=== PATIENT | male | born 1955 | race Caucasian/White ===

== ENCOUNTER → 2019-06-08 | Outpatient (CLI) | payer SELFPAY ==
[~2019-06-08] MED LIST: AMLO10 PO; CHLO25B PO; LISI20 PO
[2019-06-08 13:13] LABS: Source, Urine Clean Catch
[2019-06-08 18:10] LABS: Bilirubin, Urine Neg (Neg); Blood, Urine 1+ (Neg); Glucose Qualitative, Urine Neg (Neg); Ketones, Urine Neg (Neg); Leukocyte Esterase, Urine Neg (Neg); Nitrite, Urine Neg (Neg); Protein, Urine Neg (Neg); Urobilinogen, Urine NORM (Normal)
[2019-06-08 18:32] LABS: Appearance, Urine Clear (Clear); Color, Urine Yellow (P-Yellow)
[2019-06-08 18:33] LABS: Bacteria Rare /hpf; Red Blood Cells, Urine 0-2 /hpf (0-2); Squamous Epithelial Cells Rare /hpf (Few); White Blood Cells, Urine 0-2 /hpf (0-5)
== END | disposition home or self-care (01) ==
LOC: LAB SHORT 13:09 → LAB 13:09 → LAB FUT 06-07 19:45
PROVIDERS: Physician Assistant
DX: N39.0 Urinary tract infection, site not specified (principal)
CPT/HCPCS: 81001; 87086

== ENCOUNTER 2019-06-13 13:47 | Inpatient (IN) | payer SELFPAY ==
[~2019-06-13] VITALS: Ht 170.2 cm; Wt 78.4 kg
[2019-06-13 14:55] LABS: BASOPHILS ABSOLUTE AUTO 0.07 K/mm3 (0.00-0.23); BASOPHILS PERCENT AUTO 1 % (0-2); EOSINOPHILS ABSOLUTE AUTO 0.43 K/mm3 (0.00-0.68); EOSINOPHILS PERCENT AUTO 7 % (0-6); Hematocrit 29.9 % (37.0-53.0); Hemoglobin 10.1 g/dL (13.5-17.5); IMMATURE GRAN ABSOLUTE AUTO 0.02 K/mm3 (0.00-0.10); IMMATURE GRAN PERCENT AUTO 0 % (0-1); LYMPHOCYTES ABSOLUTE AUTO 1.05 K/mm3 (0.84-5.20); LYMPHOCYTES PERCENT AUTO 17 % (21-46); MONOCYTES ABSOLUTE AUTO 0.75 K/mm3 (0.16-1.47); MONOCYTES PERCENT AUTO 12 % (4-13); Mean Corpuscular HGB 31.9 pg (26.0-34.0); Mean Corpuscular HGB Conc 33.8 g/dL (31.5-36.5); Mean Corpuscular Volume 94 fL (80-100); Mean Platelet Volume 9.5 fL (9.1-12.4); NEUTROPHILS ABSOLUTE AUTO 4.05 K/mm3 (1.96-9.15); NEUTROPHILS PERCENT AUTO 64 % (41-73); Platelet Count 278 K/mm3 (150-400); RDW Coefficient Variation 11.2 % (11.7-14.2); RDW Standard Deviation 38.9 fL (35.1-46.3); Red Blood Cell Count 3.17 M/mm3 (4.30-5.90); White Blood Cell Count 6.37 K/mm3 (4.00-11.30)
[2019-06-13] MEDS ORDERED: SILD25T PO (14:56)
[2019-06-13 15:35] LABS: Albumin, Blood 3.6 g/dL (3.4-5.0); Bilirubin, Total 0.2 mg/dL (0.1-1.0); Bun/Creatinine Ratio 7.7 (12.0-20.0); Calcium, Blood 8.6 mg/dL (8.5-10.1); Creatinine, Blood 9.48 mg/dL (0.60-1.20); Globulin, Blood 3.7 g/dL (2.2-4.0); Potassium, Blood 5.9 mmol/L (3.5-5.5); Total Protein, Blood 7.3 g/dL (6.4-8.2)
[2019-06-13] MEDS ORDERED: ZESTRIL40 M1 PO (16:32)
[2019-06-13] MEDS ORDERED: AMLO10 PO (16:32)
[2019-06-13] MEDS ORDERED: CHLO25B PO (16:33)
[2019-06-13] MEDS ORDERED: TAMSULOSIN HCL0.4 M1 PO (16:33)
[2019-06-13] MEDS ORDERED: Hydrocodone-Ap1 EA20 PO (16:33)
[2019-06-13] MEDS ORDERED: IBU800 MG PO (20:31)
[2019-06-13] MEDS ORDERED: EX LAX MAXIMUM PO (20:34)
--- NOTE | 2019-06-13 22:30 | NUR ---
PCU ADMIT PT BROUGHT TO PCU RM 02 BY SHAYAN FROM ER @ APPROX 2019. PT SLID OVER FROM [facility] TO PCU BED BY 3 STAFF MEMBERS. PT A&O X4. VSS. MONITOR SHOWS SR, HR 90's. SPO2 > 92% ON RA. PT C/O "03/20" PAIN IN HIS "PENIS". PT W/ GARAY CATH DRAINING DARK RED BLOOD. PT'S PENIS ALSO W/ BLOOD LEAKING FROM AROUND CATHETER INSERTION SITE. PT MEDICATED FOR PAIN PER EMAR/PT REQUEST. PT NPO. [facility] CONSULT CALLED TO ANSWERING SERVICE FOR DIALYSIS CATH PLACEMENT. WILL CONTINUE TO MONITOR AND PROVIDE CARE.
--- NOTE | 2019-06-14 00:22 | NUR ---
MD RODRIGUES AT BEDSIDE MD RODRIGUES W/ TELEPHONE ORDER FOR STAT LABS & ONE TIME BUMEX, SEE EMAR & REVIEW LABS. MD RODRIGUES THEN IN TO SEE PT W/ UPDATE TO PT FOR PLAN FOR DIALYSIS IN THE AM POST DIALYSIS CATH PLACEMENT. PT NPO. WILL CONTINUE TO MONITOR AND PROVIDE CARE.
--- NOTE | 2019-06-14 00:50 | NUR ---
CRITICAL POTASSIUM CALL TO MD RODRIGUES @ APPROX 0030 TO REPORT K OF 7.0. MD RODRIGUES W/ NEW MEDICATION ORDERS, SEE EMAR. WILL CONTINUE TO MONITOR.
[2019-06-14 03:59] LABS: BASOPHILS ABSOLUTE AUTO 0.03 K/mm3 (0.00-0.23); BASOPHILS PERCENT AUTO 0 % (0-2); EOSINOPHILS ABSOLUTE AUTO 0.05 K/mm3 (0.00-0.68); EOSINOPHILS PERCENT AUTO 1 % (0-6); Hematocrit 26.5 % (37.0-53.0); Hemoglobin 9.5 g/dL (13.5-17.5); IMMATURE GRAN ABSOLUTE AUTO 0.03 K/mm3 (0.00-0.10); IMMATURE GRAN PERCENT AUTO 0 % (0-1); LYMPHOCYTES PERCENT AUTO 8 % (21-46); MONOCYTES ABSOLUTE AUTO 0.92 K/mm3 (0.16-1.47); MONOCYTES PERCENT AUTO 12 % (4-13); Mean Corpuscular HGB 33.5 pg (26.0-34.0); Mean Corpuscular HGB Conc 35.8 g/dL (31.5-36.5); Mean Corpuscular Volume 93 fL (80-100); Mean Platelet Volume 9.4 fL (9.1-12.4); NEUTROPHILS ABSOLUTE AUTO 6.16 K/mm3 (1.96-9.15); NEUTROPHILS PERCENT AUTO 79 % (41-73); Platelet Count 309 K/mm3 (150-400); RDW Coefficient Variation 11.2 % (11.7-14.2); RDW Standard Deviation 38.1 fL (35.1-46.3); Red Blood Cell Count 2.84 M/mm3 (4.30-5.90); White Blood Cell Count 7.79 K/mm3 (4.00-11.30)
[2019-06-14 04:24] LABS: CPK Creatine Kinase 97 U/L (39-308); Magnesium, Blood 4.2 mg/dL (1.6-2.4); Uric Acid, Blood 6.9 mg/dL (3.5-7.2)
[2019-06-14 04:29] LABS: Alanine Aminotransfer (ALT/SGP 15 U/L (12-78); Albumin, Blood 3.4 g/dL (3.4-5.0); Alk Phos 61 U/L (50-136); Anion Gap 16 mmol/L (6-16); Aspartate Aminotrans (AST/SGOT 13 U/L (12-37); Bilirubin, Direct <0.1 mg/dL (0.0-0.3); Bilirubin, Indirect Unable to Calculate mg/dL (0.1-0.7); Bilirubin, Total 0.3 mg/dL (0.1-1.0); Blood Urea Nitrogen 78 mg/dL (8-24); Bun/Creatinine Ratio 7.4 (12.0-20.0); CO2, Blood 19 mmol/L (21-32); Calcium, Blood 8.4 mg/dL (8.5-10.1); Chloride, Blood 93 mmol/L (98-108); Globulin, Blood 3.5 g/dL (2.2-4.0); Glomerular Filtration Rate 5 (60-); Glucose, Blood 83 mg/dL (70-99); Phosphorus, Blood 7.6 mg/dL (2.5-4.9); Potassium, Blood 5.8 mmol/L (3.5-5.5); Sodium, Blood 128 mmol/L (136-145); Total Protein, Blood 6.9 g/dL (6.4-8.2)
--- NOTE | 2019-06-14 05:40 | NUR ---
SHIFT SUMMARY PT CONTINUES TO BE A&O X4. VSS. MONITOR SHOWING NSR, HR 90's. SPO2 > 92% ON RA. PT CONTINUES TO C/O 9-12 OUT OF 10 PAIN IN HIS PENIS. GARAY CATH DRAINING DARK RED BLOOD W/ BLOOD LEAKING AT CATHETER INSERTION SITE. PT MEDICATED FOR PAIN PER EMAR/PT REQUEST W/ LITTLE TO NO RELIEF. MD RODRIGUES IN TO SEE PT, INSTRUCTING TO IRRIGATE GARAY CATH NEEDED. MD RODRIGUES W/ ORDERS FOR K CORRECTION THIS SHIFT W/ K COMING DOWN FROM 7.0 TO 5.8 THIS SHIFT. PT NPO, [place] [facility] [place]AC[place]. MD RODRIGUES W/ PLANS FOR DIALYSIS TODAY POST DIALYSIS CATH PLACEMENT. WILL CONTINUE TO MONITOR AND PROVIDE CARE UNTIL REPORT OFF TO DAY SHIFT RN.
--- NOTE | 2019-06-14 09:00 | NUR ---
DR TRUJILLO CALLED FOR POSSIBLE UROLOGY CONSULT
--- NOTE | 2019-06-14 11:13 | NUR ---
ROCEPHIN HELD UNTIL DYALISIS IS COMPLETE
--- NOTE | 2019-06-14 15:50 | NUR ---
PT'S SPOUSE ENTERS ANOTHER PT'S ROOM THAT THIS RN IS IN AND BEGINS SCREAMING AT THIS RN "HE NEEDS PAIN MEDCIATION NOW" S/O IS ESCORTED OUT OF ROOM IT IS NOT HER SPOUSES ROOM. SHE IS EDUCATED THAT PT WAS JUST MEDICATED AN HOUR AGO THAT THIS RN HAS MEDICATIONS IN HAND THAT IF SHE WOULD RETURN TO ROOM WE CAN DISCUSS HER CONCERNS. S/O TO ROOMCONTINES SCREAMING PT STS TO SPOUSE "STOP BITCHING A HER AND GO" S/O LEFT ROOM. DR TRUJILLO IS TO BEDSIDE S/O THEN BEGINS RAISING HER VOICE AT DR TRUJILLO MAKING DEMANDS ABOUT HER EXPECTATION OF HIS PAIN MEDICATION ADMINISTRATION, WHICH SHE IS PROMPTLY EDUCATED BY DR TRUJILLO
--- NOTE | 2019-06-14 18:19 | NUR ---
SHIFT NOTE PT HAS BEEN DIFFICULT TO CONTROL PAIN TODAY, PT WAS MEDCIATED WITH 1MG OF ATIVAN WHICH HAS CONTROLLED BLADDER SPASMS AND PAIN, PT RESTING WELL I N BED AT THIS TIME. GARAY HAS BEEN IRRIGATED 3 TIMES TODAY WITH LARGE AMOUNT OF CLOTS REMOVED. PT WILL RETURN TOMORROW TO CT. PERMACATH PLACED DID RECIEVE DIALYSIS TOEDAY. PERMACATH WITH NO DRAINAGE
--- NOTE | 2019-06-14 22:24 | NUR ---
BLADDER IRRIGATED AT THIS TIME. MULTIPLE SMALL BLOOD CLOTS REMOVED. NO OBVIOUS URINE NOTED IN GARAY CATHETER PRIOR TO IRRIGATION. PT TOLERATED WNL.
[2019-06-15 02:11] LABS: HBSAG SCREEN Negative (Negative); HEP B CORE AB, TOT Negative (Negative); HEP C VIRUS AB <0.1 (0.0-0.9); HIV SCREEN 4TH GENERATION WRFX Non Reactive (Non Reactive)
[2019-06-15 04:43] LABS: BASOPHILS ABSOLUTE AUTO 0.03 K/mm3 (0.00-0.23); BASOPHILS PERCENT AUTO 0 % (0-2); EOSINOPHILS ABSOLUTE AUTO 0.01 K/mm3 (0.00-0.68); EOSINOPHILS PERCENT AUTO 0 % (0-6); Hematocrit 18.6 % (37.0-53.0); Hemoglobin 6.2 g/dL (13.5-17.5); IMMATURE GRAN ABSOLUTE AUTO 0.02 K/mm3 (0.00-0.10); IMMATURE GRAN PERCENT AUTO 0 % (0-1); LYMPHOCYTES ABSOLUTE AUTO 0.34 K/mm3 (0.84-5.20); LYMPHOCYTES PERCENT AUTO 4 % (21-46); MONOCYTES ABSOLUTE AUTO 0.73 K/mm3 (0.16-1.47); MONOCYTES PERCENT AUTO 9 % (4-13); Mean Corpuscular HGB 31.3 pg (26.0-34.0); Mean Corpuscular HGB Conc 33.3 g/dL (31.5-36.5); Mean Corpuscular Volume 94 fL (80-100); Mean Platelet Volume 9.4 fL (9.1-12.4); NEUTROPHILS ABSOLUTE AUTO 7.16 K/mm3 (1.96-9.15); NEUTROPHILS PERCENT AUTO 86 % (41-73); Platelet Count 259 K/mm3 (150-400); RDW Coefficient Variation 11.7 % (11.7-14.2); RDW Standard Deviation 39.5 fL (35.1-46.3); Red Blood Cell Count 1.98 M/mm3 (4.30-5.90); White Blood Cell Count 8.29 K/mm3 (4.00-11.30)
[2019-06-15 05:14] LABS: Magnesium, Blood 3.3 mg/dL (1.6-2.4)
[2019-06-15 05:46] LABS: Albumin, Blood 2.8 g/dL (3.4-5.0); Albumin/Globulin Ratio 0.9 (0.8-1.8); Bilirubin, Total 0.3 mg/dL (0.1-1.0); Calcium, Blood 8.3 mg/dL (8.5-10.1); Globulin, Blood 3.1 g/dL (2.2-4.0); Potassium, Blood 5.5 mmol/L (3.5-5.5); Total Protein, Blood 5.9 g/dL (6.4-8.2)
[2019-06-15 05:48] LABS: Bun/Creatinine Ratio 6.2 (12.0-20.0); Creatinine, Blood 8.77 mg/dL (0.60-1.20)
--- NOTE | 2019-06-15 07:21 | NUR ---
SUMMARY PT HAS BEEN A&O X4 THROUGH THE NIGHT. HE IS ON RA, IV SL, SBA OOB. GARAY CATHETER IRRIGATED PRN THROUGH THE NIGHT WITH 60-90cc OF STERILE WATER, MULTIPLE SMALL CLOTS, KRISHNA RED BLOOD IN TUBING AND ON DEPENDS NOTED. 250 ML EMPTIED FROM GARAY, COLOR IS KRISHNA RED, UNCLEAR IF IT IS URINE OR IRRIGATION FLUID. IN TO ASSESS THE PT THIS AM, 2 UNITS PRBC'S WERE ORDERED DUE TO DECREASED H & H. SAT AT THE BEDSIDE AND AND EXPLAINED TO THE PT AND HIS BROTHER (ON SPEAKER PHONE) THE CURRENT STATUS OF THE PT AND THE REASON FOR NEEDING THE BLOOD. THE PT HAD SIGNED A BLOOD REFUSAL FORM STATING HE IS A JEHOVAH WITNESS. THE PT WAS INFORMED BY THE DOCTOR OF ALL RISKS ASSOCIATED INCLUDING , THE PT CONTINUED TO REFUSE THE TRANSFUSION. HAS BEEN NOTIFED OF PT'S STATUS THIS AM, HE AND ARE CURRENTLY ARRANGING TRANSPORT TO A HIGHER LEVEL OF CARE. THE PT IS SLEEPY BUT WILL WAKE WITH STIMULATION AT THIS TIME, RESP UNLABORED, RA. BED ALARM FOR SAFETY. REPORT HAS BEEN GIVEN TO JOHN WOLFE.
--- NOTE | 2019-06-15 10:08 | NUR ---
DIALYSIS ORDERED THIS AM BY DR RODRIGUES TO INCLUDE TRANSFUSION OF 2 UNITS PRBC IN RESPONSE TO 3 POINT HGB DROP OVERNIGHT TO 6.2 THIS AM. MACHINE WAS SET UP, PRIMED AND TESTED AND READY FOR TREATMENT. PRIOR TO START OF TREATMENT THIS MORNING PATIENT IS ADAMANT IN REFUSING TRANSFUSION DUE TO SABIANIST BELIEFS. PATIENT TRANSFER TO HIGHER LEVEL OF CARE WAS IMPLIMENTED AND AND TRANSPORT ARRIVED WITHIN 30 MINUTES TO [employer] HUMAN RESOURCES ASSISTANT PATIENT.
--- NOTE | 2019-06-15 11:17 | NUR ---
TRANSFER SUMMARY PATIENT TRANSFERED TO [facility] - TRANSFERED VIA GURNEY AND EMS. REPORTED TO [facility] RN GUERO. PATIENT HYPERTENSIVE WITH SBP 160-190'S. SINUS TACH 100'S. PATIENT LEFT UNIT IN NO ACUTE DISTRESS. GARAY CATH IN PLACE - CONTINUES TO DRAIN KRISHNA RED URINE. FAMILY NOTIFIED AND LEFT WITH PATIENT.
[2019-06-18 09:08] LABS: ANTIGLOMERULAR BM AB 2 units (0-20)
[2019-06-18 13:08] LABS: ANA DIRECT Negative (Negative); ANTIMYELOPEROXIDASE (MPO) ABS <9.0 U/mL (0.0-9.0); ANTIPROTEINASE 3 (PR-3) ABS <3.5 U/mL (0.0-3.5); ATYPICAL PANCA <1:20 titer (Neg:<1:20); CYTOPLASMIC (C-ANCA) <1:20 titer (Neg:<1:20); PERINUCLEAR (P-ANCA) <1:20 titer (Neg:<1:20)
[2019-06-18 14:08] LABS: A/G RATIO 1.4 (0.7-1.7); ALBUMIN 3.4 g/dL (2.9-4.4); ALPHA-1-GLOBULIN 0.3 g/dL (0.0-0.4); ALPHA-2-GLOBULIN 0.9 g/dL (0.4-1.0); BETA GLOBULIN 0.7 g/dL (0.7-1.3); GAMMA GLOBULIN 0.7 g/dL (0.4-1.8); GLOBULIN, TOTAL 2.6 g/dL (2.2-3.9); IMMUNOGLOBULIN A, QN, SERUM 145 mg/dL (61-437); IMMUNOGLOBULIN G, QN, SERUM 733 mg/dL (700-1600); IMMUNOGLOBULIN M, QN, SERUM 76 mg/dL (20-172); M-SPIKE Not Observed g/dL (Not Observed)
== END 2019-06-15 09:33 | disposition short-term general hospital (02) | DRG 683 ==
LOC: ER 13:47 → PCU 17:41
PROVIDERS: Internal Medicine Nephrology; Physician Assistant; ADMIT Family Medicine
PROC: 05HM33Z Insertion of Infusion Device into Right Internal Jugular Vein, Percutaneous Approach (ICD-10-PCS; principal; 2019-06-14)
PROC: B513ZZA Fluoroscopy of Right Jugular Veins, Guidance (ICD-10-PCS; 2019-06-14)
PROC: 5A1D70Z Performance of Urinary Filtration, Intermittent, Less than 6 Hours Per Day (ICD-10-PCS; 2019-06-14)
DX: N17.9 Acute kidney failure, unspecified (principal); D62 Acute posthemorrhagic anemia; E87.2 Acidosis; F11.20 Opioid dependence, uncomplicated; E87.1 Hypo-osmolality and hyponatremia; N13.30 Unspecified hydronephrosis; R31.0 Gross hematuria; N32.89 Other specified disorders of bladder; T39.395A Adverse effect of other nonsteroidal anti-inflammatory drugs [NSAID], initial encounter; E87.5 Hyperkalemia; M54.9 Dorsalgia, unspecified; G89.29 Other chronic pain; E87.70 Fluid overload, unspecified; I12.9 Hypertensive chronic kidney disease with stage 1 through stage 4 chronic kidney disease, or unspecified chronic kidney disease; N18.9 Chronic kidney disease, unspecified; N40.1 Benign prostatic hyperplasia with lower urinary tract symptoms; F15.21 Other stimulant dependence, in remission; F17.220 Nicotine dependence, chewing tobacco, uncomplicated; R97.20 Elevated prostate specific antigen [PSA]; N28.89 Other specified disorders of kidney and ureter
CPT/HCPCS: 36415; 36430; 71046; 74176; 76770; 76937; 80053; 82248; 82374; 82550; 82784; 82947; 83516; 83520; 83735; 83880; 84100; 84132; 84165; 84550; 85025; 86038; 86256; 86317; 86334; 86704; 86708; 86803; 86850; 86900; 86901; 86923; 87040; 87340; 87389; 93005; 93010; 96374; 96376; 99152; 99153; 99285-25; C1750; C1769; G0103; J0696; J0881; J1170; J1644; J1815; J2060; J2250; J3010; J7040; J7042; J7050; J7070; J7799; P9016

== ENCOUNTER → 2019-06-13 | Outpatient (CLI) | payer SELFPAY ==
[~2019-06-13] MED LIST changes: +EX LAX MAXIMUM PO; +Hydrocodone-Ap1 EA20 PO; +IBU800 MG PO; -LISI20 PO; +SILD25T PO; +TAMSULOSIN HCL0.4 M1 PO; +ZESTRIL40 M1 PO
== END ==
LOC: LAB EV 15:33 → LAB SHORT 15:33
DX: R33.9 Retention of urine, unspecified (principal)
CPT/HCPCS: 87086

== ENCOUNTER 2019-07-24 18:55 | Inpatient (IN) | payer OTHER ==
[~2019-07-24] VITALS: Ht 170.2 cm; Wt 67.6 kg
[2019-07-24 20:43] LABS: BASOPHILS ABSOLUTE AUTO 0.08 K/mm3 (0.00-0.23); BASOPHILS PERCENT AUTO 0 % (0-2); EOSINOPHILS ABSOLUTE AUTO 0.01 K/mm3 (0.00-0.68); EOSINOPHILS PERCENT AUTO 0 % (0-6); Hematocrit 33.4 % (37.0-53.0); Hemoglobin 9.7 g/dL (13.5-17.5); IMMATURE GRAN ABSOLUTE AUTO 0.15 K/mm3 (0.00-0.10); IMMATURE GRAN PERCENT AUTO 1 % (0-1); LYMPHOCYTES ABSOLUTE AUTO 0.66 K/mm3 (0.84-5.20); LYMPHOCYTES PERCENT AUTO 2 % (21-46); MONOCYTES ABSOLUTE AUTO 1.71 K/mm3 (0.16-1.47); MONOCYTES PERCENT AUTO 6 % (4-13); Mean Corpuscular HGB 26.1 pg (26.0-34.0); Mean Corpuscular Volume 90 fL (80-100); Mean Platelet Volume 10.7 fL (9.1-12.4); NEUTROPHILS ABSOLUTE AUTO 26.82 K/mm3 (1.96-9.15); NEUTROPHILS PERCENT AUTO 91 % (41-73); Platelet Count 388 K/mm3 (150-400); RDW Standard Deviation 56.4 fL (35.1-46.3); Red Blood Cell Count 3.71 M/mm3 (4.30-5.90); White Blood Cell Count 29.43 K/mm3 (4.00-11.30)
[2019-07-24 20:56] LABS: Source, Urine Urostomy Bag
[2019-07-24 20:59] LABS: Albumin/Globulin Ratio 0.7 (0.8-1.8); Bilirubin, Total 0.2 mg/dL (0.1-1.0); Bun/Creatinine Ratio 17.6 (12.0-20.0); Calcium, Blood 8.6 mg/dL (8.5-10.1); Creatinine, Blood 1.31 mg/dL (0.60-1.20); Globulin, Blood 4.6 g/dL (2.2-4.0); Potassium, Blood 3.8 mmol/L (3.5-5.5); Total Protein, Blood 7.6 g/dL (6.4-8.2)
[2019-07-24 21:00] LABS: Source, Urine Urostomy Bag
[2019-07-24 21:02] LABS: Appearance, Urine Hazy (Clear); Bilirubin, Urine Neg (Neg); Blood, Urine 1+ (Neg); Color, Urine Yellow (P-Yellow); Glucose Qualitative, Urine Neg (Neg); Ketones, Urine Neg (Neg); Leukocyte Esterase, Urine 3+ (Neg); Nitrite, Urine Pos (Neg); Protein, Urine 3+ (Neg); Specific Gravity, Urine 1.015 (1.003-1.022); Urobilinogen, Urine NORM (Normal)
[2019-07-24 21:03] LABS: Appearance, Urine Turbid (Clear); Bilirubin, Urine Neg (Neg); Blood, Urine 5+ (Neg); Color, Urine Yellow (P-Yellow); Glucose Qualitative, Urine Neg (Neg); Ketones, Urine Neg (Neg); Leukocyte Esterase, Urine 3+ (Neg); Nitrite, Urine Neg (Neg); Protein, Urine 4+ (Neg); Urobilinogen, Urine NORM (Normal)
[2019-07-24 21:12] LABS: Amorphous Heavy (0-Heavy); Bacteria Mod /hpf; Red Blood Cells, Urine 25-50 /hpf (0-2); Squamous Epithelial Cells Not Seen /hpf (Few)
[2019-07-24 21:13] LABS: Bacteria Many /hpf; Mucus Light (0-Heavy); Red Blood Cells, Urine 0-2 /hpf (0-2); Squamous Epithelial Cells Not Seen /hpf (Few); White Blood Cells, Urine TNTC /hpf (0-5)
--- NOTE | 2019-07-25 00:20 | NUR ---
Transfer report from [facility] DO[facility] SURGEON on PT being admitted with fever pylonephritis bilat & dc from [facility] 06/15/2019 after starting hemodyialysis. He had been admitted and had bilat nephrostomies in another town. T reported as high as 103.5 but no fever in ER. Await admission.
[2019-07-25 05:38] LABS: Albumin, Blood 2.5 g/dL (3.4-5.0); Anion Gap 7 mmol/L (6-16); Blood Urea Nitrogen 23 mg/dL (8-24); Bun/Creatinine Ratio 14.6 (12.0-20.0); CO2, Blood 24 mmol/L (21-32); Calcium, Blood 8.6 mg/dL (8.5-10.1); Chloride, Blood 98 mmol/L (98-108); Creatinine, Blood 1.57 mg/dL (0.60-1.20); Glomerular Filtration Rate 48 (60-); Glucose, Blood 96 mg/dL (70-99); Phosphorus, Blood 3.3 mg/dL (2.5-4.9); Potassium, Blood 3.8 mmol/L (3.5-5.5); Sodium, Blood 129 mmol/L (136-145)
[2019-07-25 05:58] LABS: BASOPHILS ABSOLUTE AUTO 0.04 K/mm3 (0.00-0.23); BASOPHILS PERCENT AUTO 0 % (0-2); EOSINOPHILS ABSOLUTE AUTO 0.03 K/mm3 (0.00-0.68); EOSINOPHILS PERCENT AUTO 0 % (0-6); Hematocrit 28.8 % (37.0-53.0); Hemoglobin 8.3 g/dL (13.5-17.5); IMMATURE GRAN ABSOLUTE AUTO 0.12 K/mm3 (0.00-0.10); IMMATURE GRAN PERCENT AUTO 1 % (0-1); LYMPHOCYTES PERCENT AUTO 3 % (21-46); MONOCYTES PERCENT AUTO 10 % (4-13); Mean Corpuscular HGB Conc 28.8 g/dL (31.5-36.5); Mean Corpuscular Volume 90 fL (80-100); Mean Platelet Volume 10.4 fL (9.1-12.4); NEUTROPHILS ABSOLUTE AUTO 17.25 K/mm3 (1.96-9.15); NEUTROPHILS PERCENT AUTO 87 % (41-73); Platelet Count 363 K/mm3 (150-400); RDW Standard Deviation 56.4 fL (35.1-46.3); Red Blood Cell Count 3.19 M/mm3 (4.30-5.90); White Blood Cell Count 19.94 K/mm3 (4.00-11.30)
--- NOTE | 2019-07-25 08:30 | NUR ---
PT QUITE PLEASANT COOP A/O STATES PAIN 10/18, BUT IS PRETTY GOOD FOR HIM. WILL CALL WHEN READY FOR MEDS. BILAT NEPHROSTOMY TUBES. RT NOT DRAINING MUCH AT ALL. WILL NOTIFY DR HUGHES WHEN SEE. (DONE). MED FOR TEMP ALSO. H/R REG, NO MURMER NOTED. NO TELE. LUNGS CLEAR, RESP EASY, UNLABORED. ON R.A. BT X4 LAST BM 2 DAYS. VOIDS UROSTOMY. RT NOT DRAINING MUCH, IS CLOUDY, LEFT IS CLEAR YELLOW. BAG HOLDING EST 3-400 CC AT THIS TIME. BOTH SITES CDI. PT INDEPENDANT IN ROOM. BED IN LOW POSITION, CALL LITE IN REACH, CALLS APPROP
--- NOTE | 2019-07-25 18:38 | NUR ---
PT PLEASANT TODAY. VERY LITTLE DRAINAGE ON RT NEPHROSTOMY TUBE TODAY. GOOD DRAINAGE ON LEFT. WAS NOTIFIED. DR HUGHES CALLED FOR GARAY TO BE PLACED. DONE. SAMPLES SENT ON URINE ON RT NEPHROSTOMY AND GARAY CATH. NO OTHER CONCERNS AT THIS TIME. BED IN LOW POSITION, CALL LITE IN REACH, CALLS APPROP
--- NOTE | 2019-07-25 19:53 | NUR ---
LEFT NEPHROSTOMY TUBE DRESSING CHANGED. STERILE DRSNG APPLIED. ALERT AND ORIENTED. CALL LIGHT IN REACH.
[2019-07-25] MEDS ORDERED: TOLT4 PO (21:35)
[2019-07-25] MEDS ORDERED: FOLI1 PO (21:36)
[2019-07-25] MEDS ORDERED: FERSU300 PO (21:37)
--- NOTE | 2019-07-26 03:55 | NUR ---
HAS BEEN RESTING QUIETLY WITH FWE INTERRUPTIONS THIS SHIFT SINCE HS. RECEIVING IV ANTIBIOTICS EVERY 6 HRS - SEE MAR FOR DETAILS. BILAT NEPHROSTOMY TUBES DRAINING. HAS GARAY CATH WELL - SEE I AND O FLOW SHEETS FOR DETAILS. CALL LIGHT IN REACH.
--- NOTE | 2019-07-26 19:29 | NUR ---
Pt off floor, still in procedure.
--- NOTE | 2019-07-26 19:33 | NUR ---
SHIFT SUMMARY PT INDEPENDENT IN ROOM. L NEPHROSTOMY TUBE NOT DRAINING PER PT. L NEPHROSTOMY TUBE DRAINING WELL. WENT AFTER LUNCH TO [facility] TO HAVE PATENCY OF URINARY SYSTEM WITH DYE. HAS RECENTLY BEEN TAKEN TO [facility] AGAIN FOR DOUBLE J STENTS TO BE PLACED.
--- NOTE | 2019-07-26 19:54 | NUR ---
PT RETURNED FROM PROCEDURE, ACCOMPANIED BY RN. RN VOICED THE RIGHT URETER/NEPHROSTOMY TUBE COMPLETELY BLOCKED, AND WILL SEE MD ON OUT PT BASIS FOR F/U TX, BUT THEY OPENED UP THE LEFT ONE SO IT COULD DRAIN BETTER. NOTE HEMATURIA OF LEFT NEPH BAG AND IN GARAY BAG. ALERT AND ORIENTED X 4. DENIED LOSS OF FEELING ANYWHERE. VS POST PROCEDURE STARTED. CALL LIGHT IN REACH
[2019-07-27 04:57] LABS: BASOPHILS ABSOLUTE AUTO 0.07 K/mm3 (0.00-0.23); BASOPHILS PERCENT AUTO 1 % (0-2); EOSINOPHILS ABSOLUTE AUTO 0.11 K/mm3 (0.00-0.68); EOSINOPHILS PERCENT AUTO 1 % (0-6); Hematocrit 25.5 % (37.0-53.0); Hemoglobin 7.3 g/dL (13.5-17.5); IMMATURE GRAN ABSOLUTE AUTO 0.06 K/mm3 (0.00-0.10); IMMATURE GRAN PERCENT AUTO 0 % (0-1); LYMPHOCYTES PERCENT AUTO 4 % (21-46); MONOCYTES ABSOLUTE AUTO 1.18 K/mm3 (0.16-1.47); MONOCYTES PERCENT AUTO 9 % (4-13); Mean Corpuscular HGB 25.5 pg (26.0-34.0); Mean Corpuscular HGB Conc 28.6 g/dL (31.5-36.5); Mean Corpuscular Volume 89 fL (80-100); Mean Platelet Volume 10.2 fL (9.1-12.4); NEUTROPHILS ABSOLUTE AUTO 11.56 K/mm3 (1.96-9.15); NEUTROPHILS PERCENT AUTO 86 % (41-73); Platelet Count 333 K/mm3 (150-400); RDW Coefficient Variation 17.2 % (11.7-14.2); RDW Standard Deviation 55.8 fL (35.1-46.3); Red Blood Cell Count 2.86 M/mm3 (4.30-5.90); White Blood Cell Count 13.48 K/mm3 (4.00-11.30)
--- NOTE | 2019-07-27 05:07 | NUR ---
SUMMARY PT HAD NEPHROSTOMY SURGERY YESTERDAY BEFORE SHIFT CHANGE, (SEE CORRESPONDING DOCUMENTATION IN MD NOTATIONS, ETC). ARRIVED ON THE FLOOR AND POAT OP VITALS TAKEN - SEE DOCUMENTATION. VSS, LEFT NEPHROATOMY TUBE DRAINING 375 THIS SHIFT, BUT THE RIGHT ONE, NO NOTED OUTPUT. RN OF SURGERY TEAM LAST NIGHT STATED THE RIGHT NEPHROSTOMY WOULD NEED TO BE FOLLOWED UP POST DC IN THE FUTURE. IVF OF NS WITH K+ ORDERED AND IS INFUSING AT 100 ML/HR. HAS HAD PAIN MEDS X 2 OF THIS WRITING. CURRENTLY RESTING QUIETLY, NO NOED DISTRESS. CALL LIGHT IN REACH. POST
[2019-07-27 05:17] LABS: Alanine Aminotransfer (ALT/SGP 25 U/L (12-78); Albumin, Blood 2.1 g/dL (3.4-5.0); Albumin/Globulin Ratio 0.5 (0.8-1.8); Alk Phos 218 U/L (50-136); Anion Gap 9 mmol/L (6-16); Aspartate Aminotrans (AST/SGOT 20 U/L (12-37); Bilirubin, Total 0.2 mg/dL (0.1-1.0); Blood Urea Nitrogen 17 mg/dL (8-24); Bun/Creatinine Ratio 13.4 (12.0-20.0); CO2, Blood 23 mmol/L (21-32); Calcium, Blood 8.6 mg/dL (8.5-10.1); Chloride, Blood 105 mmol/L (98-108); Creatinine, Blood 1.27 mg/dL (0.60-1.20); Globulin, Blood 4.1 g/dL (2.2-4.0); Glomerular Filtration Rate >60 (60-); Glucose, Blood 93 mg/dL (70-99); Potassium, Blood 3.8 mmol/L (3.5-5.5); Sodium, Blood 137 mmol/L (136-145); Total Protein, Blood 6.2 g/dL (6.4-8.2)
[2019-07-27] MEDS ORDERED: LEVFLO500 PO (13:45)
[2019-07-27] MEDS ORDERED: MIRALAX17 GM PO (13:45)
--- NOTE | 2019-07-27 14:22 | NUR ---
SUMMARY/DISCHARGE PT DISCHARGED TO HOME, PT VERBALIZED UNDERSTANDING OF DISCHARGE INSTRUCTIONS REGARDING FOLLOW UP AND MEDICATIONS, PT TAKEN OUT SAFELY VIA WHEELCHAIR
== END 2019-07-27 14:21 | disposition home or self-care (01) | DRG 659 ==
LOC: ER 18:55 → MEDS 07-25 00:15
PROVIDERS: Emergency Medicine; Internal Medicine; Nurse Practitioner Acute Care; Physician Assistant; ADMIT Internal Medicine
PROC: 0TP93DZ Removal of Intraluminal Device from Ureter, Percutaneous Approach (ICD-10-PCS; principal; 2019-07-26)
PROC: 0T773DZ Dilation of Left Ureter with Intraluminal Device, Percutaneous Approach (ICD-10-PCS; 2019-07-26)
DX: T83.512A Infection and inflammatory reaction due to nephrostomy catheter, initial encounter (principal); A41.01 Sepsis due to Methicillin susceptible Staphylococcus aureus; Z16.39 Resistance to other specified antimicrobial drug; E87.1 Hypo-osmolality and hyponatremia; D62 Acute posthemorrhagic anemia; N17.9 Acute kidney failure, unspecified; N39.0 Urinary tract infection, site not specified; F11.20 Opioid dependence, uncomplicated; E78.5 Hyperlipidemia, unspecified; I12.9 Hypertensive chronic kidney disease with stage 1 through stage 4 chronic kidney disease, or unspecified chronic kidney disease; N18.9 Chronic kidney disease, unspecified; N35.919 Unspecified urethral stricture, male, unspecified site; Z85.54 Personal history of malignant neoplasm of ureter; G89.29 Other chronic pain; M54.89 Other dorsalgia; F17.220 Nicotine dependence, chewing tobacco, uncomplicated; K59.09 Other constipation
CPT/HCPCS: 36415; 50431; 50435; 50693; 71046; 74177; 80053; 80069; 81001; 83605; 85025; 87040; 87077; 87086; 87186; 88108; 96361; 96365; 99152; 99153; 99285-25; A9270; C1729; C1769; C1887; C1894; C2617; J0696; J2250; J2543; J2916; J3010; J3480; J7030; J7040; J7050; Q9967

== ENCOUNTER 2019-12-12 08:56 | Day surgery (SDC) | payer SELFPAY ==
[~2019-12-12] VITALS: Ht 170.2 cm; Wt 62.2 kg
[~2019-12-12 08:56] MED LIST changes: +FERSU300 PO; +FOLI1 PO; +HYDROCODONE-AC1 EAC7 PO; -Hydrocodone-Ap1 EA20 PO; +LEVFLO500 PO; +MIRALAX17 GM PO; +TOLT4 PO
[2019-12-12] MEDS ORDERED: MORP30ER PO (09:38)
[2019-12-12] MEDS ORDERED: Hair, Skin & N1 EACH PO (09:39)
--- NOTE | 2019-12-12 13:59 | NUR ---
PT AND VERBALIZED UNDERSTANDING OF WRITTEN AND VERBAL D/C INST. IV REMOVED. PT TAKEN OUT OF HRT CENTER VIA W/C.
== END 2019-12-12 14:30 | disposition home or self-care (01) ==
LOC: MHTC 08:56
DX: Z46.6 Encounter for fitting and adjustment of urinary device (principal); C66.9 Malignant neoplasm of unspecified ureter; E78.5 Hyperlipidemia, unspecified; I10 Essential (primary) hypertension; Z87.891 Personal history of nicotine dependence; Z79.899 Other long term (current) drug therapy
CPT/HCPCS: 99152; C1729; C1769; J2250; J3010; J7030; J7040; Q9967

== ENCOUNTER 2020-05-08 11:55 | Inpatient (IN) | payer SELFPAY ==
[~2020-05-08] VITALS: Ht 170.2 cm; Wt 75.5 kg
[~2020-05-08 11:55] MED LIST changes: +Hair, Skin & N1 EACH PO; +MORP30ER PO; +PSYSENPA PO; +SENNA LAXATIVE8.6 MG PO
[2020-05-08 12:32] LABS: BASOPHILS ABSOLUTE AUTO 0.07 K/mm3 (0.00-0.23); BASOPHILS PERCENT AUTO 1 % (0-2); EOSINOPHILS ABSOLUTE AUTO 0.18 K/mm3 (0.00-0.68); EOSINOPHILS PERCENT AUTO 1 % (0-6); Hematocrit 20.3 % (37.0-53.0); IMMATURE GRAN ABSOLUTE AUTO 0.18 K/mm3 (0.00-0.10); IMMATURE GRAN PERCENT AUTO 1 % (0-1); LYMPHOCYTES PERCENT AUTO 4 % (21-46); MONOCYTES ABSOLUTE AUTO 0.95 K/mm3 (0.16-1.47); MONOCYTES PERCENT AUTO 7 % (4-13); Mean Corpuscular HGB 23.6 pg (26.0-34.0); Mean Corpuscular HGB Conc 29.6 g/dL (31.5-36.5); Mean Corpuscular Volume 80 fL (80-100); Mean Platelet Volume 10.2 fL (9.1-12.4); NEUTROPHILS ABSOLUTE AUTO 11.22 K/mm3 (1.96-9.15); NEUTROPHILS PERCENT AUTO 86 % (41-73); Platelet Count 359 K/mm3 (150-400); RDW Coefficient Variation 15.9 % (11.7-14.2); RDW Standard Deviation 46.8 fL (35.1-46.3); Red Blood Cell Count 2.54 M/mm3 (4.30-5.90)
[2020-05-08 12:46] LABS: Albumin, Blood 2.4 g/dL (3.4-5.0); Albumin/Globulin Ratio 0.5 (0.8-1.8); Bilirubin, Total 0.2 mg/dL (0.1-1.0); Bun/Creatinine Ratio 10.2 (12.0-20.0); Calcium, Blood 6.9 mg/dL (8.5-10.1); Creatinine, Blood 7.17 mg/dL (0.60-1.20); Globulin, Blood 4.9 g/dL (2.2-4.0); Total Protein, Blood 7.3 g/dL (6.4-8.2)
[2020-05-08 16:00] LABS: Influenza A, PCR Negative (NEGATIVE); Influenza B, PCR Negative (NEGATIVE); Resp Syncytial Virus, PCR Negative (NEGATIVE); SARS-Cov-2 (COVID-19) PCR, MMC Negative (NEGATIVE)
[2020-05-08 16:40] LABS: Albumin, Blood 2.2 g/dL (3.4-5.0); Anion Gap 9 mmol/L (6-16); Blood Urea Nitrogen 68 mg/dL (8-24); Bun/Creatinine Ratio 9.7 (12.0-20.0); CO2, Blood 27 mmol/L (21-32); Chloride, Blood 92 mmol/L (98-108); Creatinine, Blood 7.01 mg/dL (0.60-1.20); Glomerular Filtration Rate 8 (60-); Glucose, Blood 94 mg/dL (70-99); Phosphorus, Blood 2.8 mg/dL (2.5-4.9); Sodium, Blood 128 mmol/L (136-145)
[2020-05-08] MEDS ORDERED: MORPHINE SULFAT60 MG PO (18:54)
--- NOTE | 2020-05-08 19:55 | NUR ---
ADMIT TO ICU: PT ADMITTED TO ICU 8 [facility] WITH RN AT BEDSIDE AND HEART MONIOTR ATTACHED. PT STATES HE CAN'T HEAR OUT OF HIS R EAR. MORGAN KUMARI RN STATES RAC INFILTRATED WITH CA GLUCONATE AND HYALURONIDASE WAS GIVEN SQ AND IV WAS D/C'D. I PLACED A WARM PACK ON THE SITE PER [facility] RECOMMENDATIONS. PT HAS BILAT HAND IV'S. LS CLEAR T/O WITH BIOX 96% ON RA. HEART SOUNDS S1 AND S2 AUSCULTATED WITH MONIOTR SHOWING NSR WITH HR 81. SKIN PALE, COOL AND DRY. BILAT NEPHROSTOMY TUBES NOTED. L ONE VERY TENDER TO PT; WITH SMALL AMOUNT OF CLOUDY YELLOW URINE. R ONE NOT TENDER, WITH ABOUT 75CC CLEAR YELLOW URINE. GARAY IN PLACE WITH CLOTTED BLOODY URINE. DR. ANGULO AT BEDSIDE EXPLAINING THAT HE WILL BE TAKING PT TO FORM SETTER HELPER TO LOOK AT HIS NEPHROSTOMY TUBES. STATES IF THEY ARE PLUGGED, HE WILL REMOVE THEM AND PLACE A DIALYSIS CATHETER. REPORT TO RUSLAN WOLFE.
--- NOTE | 2020-05-08 20:15 | NUR ---
ASSUMED PT CARE FROM YANETH KERR ELECTRICIAN TELEPHONE STAFF AT BEDSIDE TO TAKE PT TO ELECTRICIAN TELEPHONE. PLAN IS TO ASSESS BILATERAL NEPHROSTOMY TUBES TO SEE IF THEY NEED CHANGED OUT. PLAN IS ALSO TO PLACE A PERMACATH IF NEPHROSTOMY TUBES ARE OCCLUDED.
--- NOTE | 2020-05-08 21:55 | NUR ---
PT RETURNED FROM EXTERNAL GRINDER TENDER
--- NOTE | 2020-05-08 22:15 | NUR ---
NARCAN ADMINISTERED D/T PT OBTUNDED AND UNRESPONSIVE
--- NOTE | 2020-05-08 22:23 | NUR ---
ROMAZICON ADMINISTERED D/T ALTERED MENTAL STATUS
--- NOTE | 2020-05-08 22:34 | NUR ---
UPDATE TO DR. RODRIGUES INFORMED OF PT REQUIRING NARCAN AND ROMAZICON D/T ALTERED MENTAL STATUS AND PT BEING OBTUNDED UPON RETURNING FROM SENIOR TECHNICAL PROJECT MANAGER. ORDERS FOR DIALYSIS IN THE MORNING. NEW FURTHER ORDERS.
--- NOTE | 2020-05-08 23:02 | NUR ---
UPDATE GOPI CHILDS INFORMED REGARDING BLOOD NOTED TO GARAY CATHETER AND LEFT NEPHROSTOMY TUBING THAT HAS NOTED CLOTS COMING OUT IN BAGS. IRRIGATED GARAY CATHETER WITH 100CC OF STERILE SALINE WITH NOTHING BUT BLOOD AND CLOTS COMING FROM GARAY CATHETER. BLOOD PRESSURES REMAIN STABLE AT THIS TIME. NEW ORDERS FOR REPEAT H&H, ANTICOAGS, AND LEVAQUIN. GOPI CHILDS STATED SHE WOULD CALL BACK AFTER SPEAKING WITH DR. ANGULO. WILL HOLD OFF ON THE ANTICOAGS UNTIL H&H COMES BACK. PT APPEARS TO BE ACTIVELY BLEEDING AT THIS TIME
--- NOTE | 2020-05-08 23:13 | NUR ---
CALL BACK FROM GOPI CHILDS ORDERS TO IRRIGATE GARAY UNTIL OUTPUT IS PINK AND IS FLOWING WITHOUT CLOTS IN ESTIMATED OUTPUT IN GARAY IS ABOUT 200CC OF BLOOD MIXED WITH SOME URINE; UNABLE TO MEASURE ADEQUATELY D/T CLOTS. DR. ANGULO STATES THAT THE BLOOD IN LEFT NEPHROSTOMY IS EXPECTED AND THAT THE BLEEDING FROM BLADDER HAS MOST LIKELY BEEN BLEEDING FOR A WHILE AND IS NOT NEW.
[2020-05-08 23:17] LABS: Hematocrit 20.3 % (37.0-53.0); Hemoglobin 6.1 g/dL (13.5-17.5)
[2020-05-08 23:46] LABS: International Normalized Ratio 1.08; Prothrombin Time Results 11.5 Sec (9.7-11.5)
--- NOTE | 2020-05-09 00:32 | NUR ---
DR. CAMPBELL UPDATE BLOOD PRESSURES SYSTOLIC 70'S; PT IS PALE AND DIAPHORETIC. LETHARGIC. RESPONDS TO VERBAL STIMULUS; HOWEVER, IS NOT ORIENTED. ORDERS FOR NS 500CC BOLUS. EMPTIED GARAY CATHETER WITH 1000CC NOTED TOTAL AFTER 150CC IRRIGATION OF STERILE SALINE. LEFT NEPHROSTOMY BAG HAS BLOOD NOTED WITH CLOTS IN IT. RIGHT NEPHROSTOMY BAG HAS NOT OUTPUT NOTED.
--- NOTE | 2020-05-09 00:38 | NUR ---
PT HAD A BLACK, MELENA STOOL
--- NOTE | 2020-05-09 00:39 | NUR ---
FAMILY HAS BEEN UPDATED TASIA INFORMED OF PT ACTIVELY BLEEDING FROM HIS BLADDER INTO HER GARAY CATHETER. UPDATED REGARDING BLOOD PRESSURES SLOWLY TRENDING DOWN. CONFIRMS THAT PT WOULD NOT WANT BLOOD OR BLOOD PRODUCT UNLESS IT WAS HIS OWN. INFORMED HER THAT HE IS LOSING IT TOO FAST FOR THAT TO BE AN OPTION. PT IS CONFUSED; BELIEVES IT IS 1970'S AND THAT HE IS ON THE COAST. ASKED IF HE STILL DOES NOT WANT BLOOD D/T HIS BAPTISM. HE STATES TO CONTACT HIS BROTHER BECAUSE HE WOULD KNOW. LET HIM KNOW THAT HIS HEART WILL STOP BEATING IF HE LOSES ENOUGH BLOOD AND READDRESSED FULL CODE STATUS. PT WANTS CPR AND DEFIBRILLATION. REITERATED TO PT THAT CPR AND DEFIBRILLATION WOULD MORE THAN LIKELY NOT BE SUCCESSFUL SINCE HE IS LOSING BLOOD AND BLOOD IS WHAT HE NEEDS. REQUESTED TO SPEAK TO HIS . CALLED AND TRANSFERRED INTO ROOM.
--- NOTE | 2020-05-09 00:55 | NUR ---
DR. CAMPBELL AT BEDSIDE SPEAKING WITH REGARDING THE NEED FOR BLOOD
--- NOTE | 2020-05-09 01:14 | NUR ---
DR. CAMPBELL SPOKE WITH DOESN'T SEEM TO UNDERSTAND THAT PT CAN'T HAVE HIS BLOOD "CLEANED" AND RETURNED TO HIM. SHE UNDERSTANDS THAT HE MAY TONIGHT IF HE LOSES TOO MUCH BLOOD. CODE STATUS DISCUSSED WITH ; HOWEVER, SHE STILL WISHES HIM TO BE FULL CODE. PLAN IS TO GIVE LEVOPHED PERIPHERALLY AND FLUIDS, START CONTINUOUS BLADDER IRRIGATION, AND READDRESS CODE STATUS WITH IF PT CONTINUES TO DECLINE.
--- NOTE | 2020-05-09 01:45 | NUR ---
CALL OUT TO DR. CAMPBELL INFORMED THAT FENTANYL 50MCG WAS UNEFFECTIVE FOR PAIN. NEW ORDERS FOR 50-100MCG Q3 HOURS PRN. UPDATED REGARDING PRESSOR REQUIREMENT AND BP. DR. CAMPBELL SAID THE WAS GOING TO TRY AND COME IN AND THAT IS WHEN THEY WILL DISCUSS CODE STATUS.
--- NOTE | 2020-05-09 02:21 | NUR ---
TALKED TO TASIA, INFORMED HER ON PT STATUS. BP CONTINUES TO DROP, PT IS CURRENTLY RECEVING LEVOPHED AT 12MCG/MIN. PT IS C/O PAIN TO BACK, AND BLADDER 10/10 SHARP PAIN. PT STS HE WANTS TO HAVE HIS COME AND GET HIM SO HE CAN MEET JI. HE IS ALSO REQUESTING HIS HOME PAIN MEDS. TALKED TO ABOUT CODE STATUS. SHE STS SHE DOES NOT WANT US TO DO CPR OR GIVE HIM ANY BLOOD PRODUCTS. HOWEVER, SHE WANTS US TO KEEP HIM ALIVE. SHE STS " GIVE HIM IRON, B12, SO HE CAN MAKE BLOOD" EDUCATED ON HOW THOSE MEDS WOULD NOT PRODUCE ENOUGH BLOOD FOR THE AMOUNT OF BLOOD THE PATINET HAS LOST. DID NOT SEEM TO UNDERSTAND. STS SHE WILL CALL BACK IN TEN MINUTES REGARDING CODE STATUS. PT CURRENTLY CONTINUES TO BE FULL-CODE.
[2020-05-09 03:29] LABS: Mean Corpuscular HGB Conc 30.3 g/dL (31.5-36.5); Mean Corpuscular Volume 79 fL (80-100); Mean Platelet Volume 9.9 fL (9.1-12.4); Platelet Count 312 K/mm3 (150-400); RDW Coefficient Variation 16.3 % (11.7-14.2); RDW Standard Deviation 47.5 fL (35.1-46.3); White Blood Cell Count 19.33 K/mm3 (4.00-11.30)
[2020-05-09 03:31] LABS: Hematocrit 11.9 % (37.0-53.0); Hemoglobin 3.6 g/dL (13.5-17.5)
--- NOTE | 2020-05-09 03:47 | NUR ---
DR. CAMPBELL UPDATE FROM PT IS NOW TO BE DNR/DNI; HOWEVER, WOULD LIKE US TO CONTINUE EVERTHING WE ARE CURRENTLY DOING UNTIL SHE CAN GET HERE TO SAY GOODBYE. DR. CAMPBELL TO BE PLACING COMFORT CARE ORDERS
[2020-05-09 03:48] LABS: Albumin, Blood 1.9 g/dL (3.4-5.0); Albumin/Globulin Ratio 0.5 (0.8-1.8); Bilirubin, Total 0.4 mg/dL (0.1-1.0); Bun/Creatinine Ratio 9.4 (12.0-20.0); Calcium, Blood 6.6 mg/dL (8.5-10.1); Creatinine, Blood 7.54 mg/dL (0.60-1.20); Globulin, Blood 3.6 g/dL (2.2-4.0); Potassium, Blood 5.4 mmol/L (3.5-5.5); Total Protein, Blood 5.5 g/dL (6.4-8.2)
--- NOTE | 2020-05-09 03:57 | NUR ---
PT IS SOMNOLENT AT THIS TIME. OPENS EYES TO VERBAL STIMULI; HOWEVER, IS VERY CONFUSED AND HALLUCINAING. PT APPEARS COMFORTABLE AT THIS TIME.
[2020-05-09 04:37] LABS: BAND PERCENT MAN 12 % (0-8); BASOPHILS PERCENT MAN 0 % (0-2); EOSINOPHILS PERCENT MAN 0 % (0-6); LYMPHOCYTES ABSOLUTE MAN 0.38 K/mm3 (0.84-5.20); LYMPHOCYTES PERCENT MAN 2 % (21-46); MONOCYTES ABSOLUTE MAN 0.77 K/mm3 (0.16-1.47); MONOCYTES PERCENT MAN 4 % (4-13); MYELOCYTE ABSOLUTE MAN 0.19 K/mm3 (0.00-0.00); MYELOCYTE PERCENT MAN 1 % (0-0); NEUTROPHILS ABSOLUTE MAN 17.97 K/mm3 (1.96-9.15); SEG NEUTROPHILS PERCENT MAN 81 % (41-73); TOTAL CELLS COUNTED 100
--- NOTE | 2020-05-09 06:22 | NUR ---
DR. RODRIGUES CALLED ASKING ABOUT LABS; UPDATED REGARDING COMFORT CARE STATUS
--- NOTE | 2020-05-09 06:33 | NUR ---
END OF SHIFT SUMMARY FAMILY IS CURRENTLY AT BEDSIDE. LEVOPHED CONTINUES AT 20MCG/MIN THROUGH MIDLINE TO LEFT UPPER ARM; GOOD BLOOD RETURN. ORDERS TO INFUSE VIA PERMACATH; HOWEVER, NURSING STAFF UNABLE TO DO SO D/T FACILITY POLICY STATES THAT IT CAN ONLY BE ACCESSED VIA DIALYSIS NURSE. THEREFORE, LEVOPHED STAYED INFUSING VIA MIDLINE. PT IS RECEIVING CONTINUOUS BLADDER IRRIGATION; OUTPUT IS NOW PINK IN COLOR WITH NO CLOTS NOTED IN GARAY BAG. BROTHER AND ARE CURRENTLY AT BEDSIDE AND AGREE WITH PT BEING DNR/DNI STATUS. HOWEVER, LEVOPHED CONTINUES UNTIL ALL FAMILY CAN MAKE IT IN TO SAY THEIR GOODBYES; FAMILY CALLING POLICY WRITER TYPIST TO COME IN WELL. BROTHER STATED PT WAS SCHEDULED TO GET HIS BLADDER REMOVED; HOWEVER, THE DOCTOR FOUND THAT THE CANCER HAD PERFORATED THE BLADDER AND METASTASIZED. THEREFORE, FAMILY HAS BEEN EXPECTING THIS OUTCOME. BROTHER MARKEL INFORMED ME THAT THE HAS A HARD TIME COMPREHENDING CONVERSATION D/T A BRAIN ANEURYSM. HOWEVER, SHE IS THE MAIN DECISION MAKER. PT MEDICATED TWICE THIS SHIFT WITH DILAUDID; APPEARS EFFECTIVE. HE IS COMFORTABLE AT THIS TIME. REPOSITIONING SELF IN BED; GIVEN WARM BLANKETS. WILL CONTINUE TO MONITOR UNTIL REPORT IS HANDED OFF TO ONCOMING RN.
--- NOTE | 2020-05-09 08:10 | NUR ---
PT RECEIVED FROM YANETH MERCER. PT PULLING AND TWITCHING AND VERBALIZING WORDS THAT ARE NOT COMPREHENSIBLE. PT PULLED OUT RIGHT HAND AND LEFT HAND IV'S. SITES DRESSED WITH GAUZE, COBAN, LINEN CHANGED, AT BEDSIDE. PT SAID HE WANTS TO GO HOME. ATTEMPTS TO DISCUSS CARE WITH , SHE ANSWERS THAT SHE WANTS TO KNOW WHY HE IS DYING, ASKED ABOUT CPR VS COMFORT MEASURES, NO DIALYSIS, NO BLOOD PRESSURE MEDICINE. SHE TOOK A PHONE CALL. PT MEDICATED FOR PAIN, DISCUSSED CARE WITH BROTHER. PERSON NAMED HEALTHCARE WARES SORTER IS . TURNED OFF PATIENT'S LEVOPHED AFTER DISCUSSING WITH FAMILY.
--- NOTE | 2020-05-09 09:33 | NUR ---
PT CONTINUES TO BE RESTLESS, MEDS GIVEN; ATIVAN AND ROXINOL FOR COMFORT. FAMILY WITH HIM, BROTHER,,SISTER,NEPHEW AND DAUGHTER, ROTATING IN WITH PATIENT. TRYING TO KEEP HIM COMFORTABLE.
--- NOTE | 2020-05-09 09:48 | NUR ---
Comfort care visit Pt was placed on comfort care last night. He has a history of metastatic bladder cancer and renal failure. He has blood present in his urine. His brother and other family members are present at his bedside. Nursing contacted palliative care for assistance with symptom management. Pt is anxious at times, pulls on tubes and lines. Has twitching movements of his extremities randomly. He is very pale. Levophed drip was dc'd earlier this morning. Moans out, occasionally opens his eyes but not to command. He isn't able to follow commands. Spoke with Dr. Devi and orders received for comfort care medications: roxinol, ativan, zofran and atropine drops. Spoke with nursing and updated family. Discussed EOL symptoms with family and answered their questions. PC will remain available to assist with symptom managment and family support.
--- NOTE | 2020-05-09 10:20 | NUR ---
PT SNORING WITH FAMILY IN ROOM, AT BEDSIDE. CONTINUAL TEACHING AND EXPLANATIONS TO FAMILY WHEN IN THE ROOM.
--- NOTE | 2020-05-09 11:36 | NUR ---
AFTER PATIENT TURNED AND REPOSITIONED, PT IS MORE RESTLESS AND FIDGETY, PULLING AT COVERS, FAMILY SAID HE DOESN'T SEEM COMFORTABLE. MEDICATED.
--- NOTE | 2020-05-09 12:59 | NUR ---
Pt appears more comfortable after receiving the second dose of roxinol. Still continues with random limb jerking at times but no brow furrowing noted during the jerking movements. Provided support for the family at bedside. If pt appears to become uncomfortable from the jerking movements, possibly a tylenol suppository may add to his comfort. Ativan dosing may also assist with comfort, may need to readdress the frequency if every four hours doesn't seem to keep him comfortable enough. PC to continue to follow.
--- NOTE | 2020-05-09 13:07 | NUR ---
ADMIT:05/08/20 DISCHARGE: DX:Acute kidney failure CC: [email or web address] ADMIT: 07/25/19 DISCHARGE: 07/27/19 DX:SEPSISCC: CPEABODY ADMIT: 06/13/19 DISCHARGE: 06/15/19 TRANSFER TO [facility] CALL: MET WITH LARA, S/W ON PHONE, CALL EITHER ONE FOR KEE RESIDENCE: home w/ spouse CAREGIVER: Sagrario Matthew, Spouse / Partner, DX: CKD-stage 5; HTN; mass of urinary bladder, see list DME: THUMB [facility]ICA CCM: none HOME HEALTH: none SUMMARY: 05/09/20- pt was admitted over the night. Dr. Cabello and Dr. Camacho have consulted on pt. Pt's DNR/DNI status has been confirmed with family and he has been placed on comfort care. Pt has refused any blood products due to jewish beliefs. Pt has had a low-grade temperature since being admitted. -karli
--- NOTE | 2020-05-09 14:51 | NUR ---
PT RESTING MORE QUIETLY, LESS TWITCHING, LESS RESTLESS, DAUGHTER, NIECE, AND SISTER IN LAW PRESENT. PATIENT COVERED IN WARM BLANKETS, SNORING.
--- NOTE | 2020-05-09 19:03 | NUR ---
LARA HAS HAD FAMILY WITH HIM THE ENTIRE DAY, HE HAS BEEN RESTLESS MOST OF THE DAY, THE PAIN MEDICATIONS HAVE HELPED TO CALM HIS RESTLESSNESS AND MAKE HIS MORE PEACEFUL. HE HAS HAD LITTLE OUTPUT OF THE RIGHT NEPHROSTOMY TUBE AND HAS HAD BLOODY RETURN ON THE LEFT SIDE WITH LESS THAN 200ML OUT. HE CONTINUES ON 10ML LR KVO AND FAMILY AT HIS SIDE.
--- NOTE | 2020-05-09 20:00 | NUR ---
ASSUMPTION OF CARE PT RESTING IN BED, NOT RESPONSIVE TO VERBAL STIMULI. PT DOES NOT APPEAR TO BE IN ANY APPARENT DISTRESS, BREATHING IS EVEN AND UNLABORED, NO GRIMACING OR RESTLESSNESS NOTED. WILL CONTINUE TO MONITOR FOR COMFORT CARE NEEDS.
--- NOTE | 2020-05-10 06:54 | NUR ---
SHIFT SUMMARY PT REMAINS UNRESPONSIVE TO VERBAL STIMULI, OCCASSIONALLY MOANS, GRIMACES AT TIMES, MEDICATED WITH PRN MEDICATIONS FOR PAIN/DISCOMFORT. PT VERY STIFF AND DIFFICULT TO REPOSITION.
--- NOTE | 2020-05-10 09:54 | NUR ---
AM NOTE... ASSUMED CARE OF PT APROX 0700, PT COMFORT CARE STATUS, PT LOOKS COMFORTABLE, HE IS NOT RESPONSIVE TO VERBAL STIMULI, PT WILL MOAN WITH TURNS AND REPOSITIONS BUT WON'T OPEN HIS EYES OR RESPOND MEANINGFULLY TO ANY STIMULI. PT'S GARAY PATENT AND DRAINING PINK URINE TO GRAVITY, PT'S RIGHT NEPHROSTOMTY BAG HAS MINIMAL AMOUNT OF CLEAR URINE AND THE PT'S LEFT NEPHROSTOMY WAS DRAINED OF 175MLS OF AYOUB RED URINE WITH SEDIMENT. PT HAS MULTIPLE FAMILY AT THE BEDSIDE, ALL UPDATED ON HIS PLAN OF CARE. PT IS TO TRANSFER TO MEDICAL FLOOR, REPORT GIVEN TO MEDICAL FLOOR RN. WILL CONTINUE TO MONITOR UNTIL TRANSFER.
--- NOTE | 2020-05-10 18:04 | NUR ---
FINAL DISCHARGE NOTE PATIENT UNRESPONSIVE UPON ARRIVING TO THE FLOOR. PATIENT MEDICATED 1 TIME THIS SHIFT WITH ATIVAN FOR AGITATION. PATIENT TURNED REGULARLY. PATIENT HAD MULTIPLE VISITORS IN THE ROOM THIS SHIFT. PATIENT PASSED AT APPROXIMATELY 1455 WITH 3 VISITORS IN THE ROOM. VISITORS TOOK BELONGINGS UPON DEPARTURE. HOME CONTACTED, AWAITING PICK-UP.
--- NOTE | 2020-05-10 21:45 | NUR ---
DONATION BILL DONOR TECH ARRIVED @ 0687. PT HAS HAD ICE ON EYES SINCE START OF SHIFT.
--- NOTE | 2020-05-11 00:17 | NUR ---
DISCHARGE PT LEFT WITH [facility] HOME RATINGS ANALYST SWETA ZAMBRANO @ 0010 05/11/20.
== END 2020-05-10 14:55 | DRG 674 ==
LOC: ER 11:55 → ICUW 18:00 → ICUE 18:00 → MEDS 05-10 10:21
PROVIDERS: Emergency Medicine; Internal Medicine Nephrology; Nurse Practitioner Acute Care; ADMIT Family Medicine
PROC: 0JH63XZ Insertion of Tunneled Vascular Access Device into Chest Subcutaneous Tissue and Fascia, Percutaneous Approach (ICD-10-PCS; principal; 2020-05-08)
PROC: 02HV33Z Insertion of Infusion Device into Superior Vena Cava, Percutaneous Approach (ICD-10-PCS; 2020-05-08)
PROC: B5181ZA Fluoroscopy of Superior Vena Cava using Low Osmolar Contrast, Guidance (ICD-10-PCS; 2020-05-08)
DX: N17.9 Acute kidney failure, unspecified (principal); E87.1 Hypo-osmolality and hyponatremia; C66.1 Malignant neoplasm of right ureter; D62 Acute posthemorrhagic anemia; E87.5 Hyperkalemia; F17.220 Nicotine dependence, chewing tobacco, uncomplicated; Z51.5 Encounter for palliative care; Z66 Do not resuscitate
CPT/HCPCS: 0241U; 36415; 36558; 50431; 50435; 76770; 76937; 77001; 80053; 80069; 82947; 83735; 84100; 85014; 85018; 85025; 85610; 85730; 87040; 87077; 87186; 93005; 93010; 96361; 96365; 96375; 96376; 99152; 99153; 99285-25; A9270; C1729; C1750; C1751; C1769; C1894; J0610; J0881; J1170; J1644; J1815; J1956; J2060; J2250; J2310; J3010; J3470; J7030; J7040; J7050; J7060; Q9967